=== PATIENT | male | born 1955 | race Caucasian/White ===

== ENCOUNTER 2018-09-05 16:33 | Emergency (ER) | payer MEDICARE, OTHER ==
[~2018-09-05] VITALS: Ht 172.7 cm; Wt 75.0 kg
[2018-09-05 17:13] VITALS: BP 154/89
== END 2018-09-05 17:14 ==
LOC: ER 16:34
DX: Z02.89 Encounter for other administrative examinations (principal); F17.200 Nicotine dependence, unspecified, uncomplicated
CPT/HCPCS: 99283

== ENCOUNTER 2019-06-14 12:02 | Emergency (ER) | payer MEDICARE ==
[~2019-06-14] VITALS: Ht 172.7 cm; Wt 65.7 kg
[2019-06-14 12:24] VITALS: BP 101/69
== END 2019-06-14 13:09 | disposition home or self-care (01) ==
LOC: ER 12:03
DX: M25.552 Pain in left hip (principal); H54.40 Blindness, one eye, unspecified eye
CPT/HCPCS: 73502; 99283